=== PATIENT | female | born 1950 | race Caucasian/White ===

== ENCOUNTER → 2022-03-16 12:53 | Outpatient (BNVA) | payer MEDICARE, SELFPAY | PROVIDERS: PCP Internal Medicine; Visit Provider Psychiatry & Neurology Neurology | DX: Z86.73 Personal history of transient ischemic attack (TIA), and cerebral infarction without residual deficits (principal); G91.2 (Idiopathic) normal pressure hydrocephalus; G47.33 Obstructive sleep apnea (adult) (pediatric) | CPT/HCPCS: 99202 ==

== ENCOUNTER → 2022-05-31 11:23 | Outpatient (BNVA) | payer MEDICARE, SELFPAY | PROVIDERS: PCP Internal Medicine; Visit Provider Psychiatry & Neurology Neurology | DX: G91.2 (Idiopathic) normal pressure hydrocephalus (principal); G47.33 Obstructive sleep apnea (adult) (pediatric); Z86.73 Personal history of transient ischemic attack (TIA), and cerebral infarction without residual deficits | CPT/HCPCS: 99212 ==

== ENCOUNTER → 2022-06-24 15:08 | Outpatient (REF) | payer MEDICARE, SELFPAY | LOC: HO.SL 15:08 | PROVIDERS: PCP Internal Medicine; Visit Provider Psychiatry & Neurology Neurology | DX: G47.33 Obstructive sleep apnea (adult) (pediatric) (principal); G47.10 Hypersomnia, unspecified; R06.83 Snoring | CPT/HCPCS: 95806 ==

== ENCOUNTER 2022-08-27 10:49 | Outpatient (REF) | payer OTHER, SELFPAY | END 2022-08-27 10:50 | disposition home or self-care (01) | LOC: HO.MRI 10:49 | PROVIDERS: PCP Internal Medicine; Visit Provider Psychiatry & Neurology Neurology | DX: G91.2 (Idiopathic) normal pressure hydrocephalus (principal); Z98.2 Presence of cerebrospinal fluid drainage device | CPT/HCPCS: 70551 ==

== ENCOUNTER 2022-12-15 12:46 | Outpatient (AMB) | payer MEDICARE, SELFPAY ==
--- NOTE | 2022-12-15 12:53 | A.OFFVIS_ITS ---
Intake Vital Signs 12/15/22 12:55 Height 4 ft 11 in Weight 179 lb 4 oz BMI 36.2 BP 150/70 H Blood Pressure Location Rt brachial Position Sitting Respiration 17 Pulse 76 Pulse Source Pulse Oximeter Pulse Oximetry (%) 97 Oxygen Delivery Method Room Air Intake Visit Reasons: 3 mnts f/u appt-Confirmed Intake Note: Pt presents to office for a 3 month follow up for CVA. Pt reports she feels weakness all over her body. Pt reports she had been having dizzy spells until she stopped taking flexeril. This has since resolved. Pt reports she stopped taking all her meds except for Plavix. Allergies rofecoxib [From Vioxx] Adverse Reaction (Severe, Verified 12/15/22 12:54) pass out HPI HPI Comments History of Present Illness Details 72 y/o female patient presents for follo w up of PARVEEN and CVA and NPH. Pt reports that she was seen by [facility] neurosurgeon for gait imbalance last week. Pt's shunt was adjusted and her gait has improved. She uses cane and no falls reported. Pt is on plavix 75mg qd. Pt reports daytime tiredness and weakness. She does not sleep well, has hx of PARVEEN. Pt states that she returned CPAP, she will leave to [place] and plans to come back next year. She will get a new CPAP in [place] and requested sleep study result. [facility] Medical History (Updated 06/02/22 @ 15:20 by Michelle Altman MD) Hypersomnia Snoring Diabetes Hyperlipidemia HTN (hypertension) Obstructive sleep apnea hypopnea, moderate NPH (normal pressure hydrocephalus) CVA (cerebral vascular accident) Surgical History [employer] (ventriculoperitoneal) shunt status H/O tubal ligation Hx of tonsillectomy H/O brain surgery Hx of rotator cuff surgery H/O cervical spine surgery Hx of cholecystectomy Family History Mother Diabetes Arthritis Hyperlipidemia Heart disease Stroke Hypertension Brother Cardiomyopathy Heart disease Social History Alcohol intake: never Patient Tobacco Use Status: Never used Tobacco Review of Systems Const All systems reviewed & are unremarkable except as noted in HPI and below Physical Exam Vital Signs: Last Vital Signs Pulse 76 10/18/23 12:55 Resp 17 12/15/22 12:55 BP 150/70 H 12/15/22 12:55 Pulse Ox 97 12/15/22 12:55 Oxygen Delivery Method Room Air 12/15/22 12:55 BMI result Body Mass Index 36.2 Const General: cooperative, healthy appearing and comfortable Nutritional Appearance: obese Orientation/consciousness: patient oriented x3 Eyes Pupils: Equal, round and reactive pupils present Neuro Other: mild left Ue weakness - 4+/5 and left LE 4+/5 mild dysarthria General: patient oriented x3 and moves all extremities Cranial nerves: Yes Facial sensation intact/muscles of mastication intact, Yes Equal, round and reactive pupils present, Yes Normal accommodation reflex present, Yes Bilaterally intact EOM present, Yes Nystagmus not present, Yes Normal facial strength present, Yes Midline tongue present, Yes Symmetric palate elevation present and Yes Ability to bilaterally elevate shoulders present Cognition (Neuro): normal cognition Gait exam (Neuro): Other gait observations present (mild unstable, good base , normal stride) Motor exam (neuro): Normal motor muscle tone present throughout Assessment & Plan Assessment & Plan (1) CVA (cerebral vascular accident): Code(s): I63.9 - Cerebral infarction, unspecified (2) NPH (normal pressure hydrocephalus): Code(s): G91.2 - (Idiopathic) normal pressure hydrocephalus (3) Obstructive sleep apnea hypopnea, moderate: Code(s): G47.33 - Obstructive sleep apnea (adult) (pediatric) Plan Continue plavix 75mg q daily. Discussed the importance of using CPAP regularly. Untreated PARVEEN is a risk factor for stroke. Sleep study report given to patient. Stressed CPAP compliance, use CPAP nightly and more than 4 hrs. Discussed fall prevention. Coding Level of Care Code Est Pt Level 3 (99755) Diagnoses CVA (cerebral vascular accident) I63.9 NPH (normal pressure hydrocephalus) G91.2 Obstructive sleep apnea hypopnea, moderate G47.33
[2022-12-15 12:55] VITALS: BP 150/70; PULSE 76; RESP 17; O2SAT 97; BMI 36.2
== END 2022-12-15 13:23 | disposition home or self-care (01) ==
PROVIDERS: Visit Provider Nurse Practitioner Family
DX: I69.398 Other sequelae of cerebral infarction (principal); G91.2 (Idiopathic) normal pressure hydrocephalus; G47.33 Obstructive sleep apnea (adult) (pediatric)
CPT/HCPCS: 99213

== ENCOUNTER → 2022-12-15 12:46 | Outpatient (BNVA) | payer MEDICARE, SELFPAY | PROVIDERS: Visit Provider Nurse Practitioner Family | DX: I63.9 Cerebral infarction, unspecified (principal); G91.2 (Idiopathic) normal pressure hydrocephalus; G47.33 Obstructive sleep apnea (adult) (pediatric); Z79.01 Long term (current) use of anticoagulants | CPT/HCPCS: 99212 ==